=== PATIENT | male | born 1965 | race Caucasian/White ===

== ENCOUNTER 2018-09-02 10:00 | Emergency (ER) | payer SELFPAY ==
[2018-09-02] MEDS ORDERED: TETANUS/DIPHTHERIA TOXOID [ADULT] 0.5 ML VIAL IM ONE (10:13)
== END 2018-09-02 10:44 | disposition home or self-care (01) ==
LOC: EDH 10:00
DX: S91.341A Puncture wound with foreign body, right foot, initial encounter (principal); I10 Essential (primary) hypertension; Z72.0 Tobacco use; W45.0XXA Nail entering through skin, initial encounter; Y93.89 Activity, other specified; Y92.89 Other specified places as the place of occurrence of the external cause; Y99.8 Other external cause status
CPT/HCPCS: 73620; 90471; 90714

== ENCOUNTER 2022-02-10 01:10 | Emergency (ER) | payer OTHER ==
[~2022-02-10] VITALS: Ht 177.8 cm; Wt 94.8 kg
[2022-02-10 01:40] LABS: BASOPHILS % (AUTO) 1.1 % (0.0-5.0); EOSINOPHILS % (AUTO) 2.3 % (0.0-8.0); HEMATOCRIT 43.4 % (42-54); LYMPHOCYTES % (AUTO) 38.5 % (21.0-51.0); MEAN CORPUSCULAR HEMOGLOBIN 30.4 pg (27.0-33.0); MEAN CORPUSCULAR HGB CONC 33.9 g/dL (32.0-36.0); MEAN CORPUSCULAR VOLUME 89.9 fL (79-99); MONOCYTES % (AUTO) 11.6 % (3.0-13.0); PLATELET COUNT (AUTO) 256 K/uL (130-400); RED BLOOD CELL COUNT(AUTO) 4.83 MIL/uL (4.50-6.20); RED CELL DISTRIBUTION WIDTH 12.9 % (11.0-15.5); WHITE BLOOD COUNT (AUTO) 10.6 K/uL (4.8-10.8)
[2022-02-10 01:54] LABS: CREATININE 0.9 mg/dL (0.5-1.5)
[2022-02-10 01:59] LABS: BILIRUBIN,TOTAL 0.3 mg/dL (0.2-1.0); TOTAL PROTEIN, SERUM 7.7 g/dL (6.0-8.3)
[2022-02-10] MEDS ORDERED: KETOROLAC 30MG VIAL (30MG/ML) IVP ONE (02:00)
[2022-02-10] MEDS ORDERED: HYDROCODONE/ACETAMINOPHEN 10/325 MG TAB PO ONE (02:00)
[2022-02-10 03:09] VITALS: BP 149/94
[2022-02-10] MEDS ORDERED: MORPHINE 4 MG SYG ONE (03:17)
[2022-02-10] MEDS ORDERED: MORPHINE 4 MG SYG IVP ONE (03:30)
[2022-02-10] MEDS ORDERED: ACET-2079 PO (03:47)
[2022-02-10] MEDS ORDERED: DICL50TA9 PO (03:47)
== END 2022-02-10 03:58 | disposition home or self-care (01) ==
LOC: EDH 01:10
DX: T75.4XXA Electrocution, initial encounter (principal); I10 Essential (primary) hypertension; M54.2 Cervicalgia; M62.82 Rhabdomyolysis; R07.89 Other chest pain; Z79.1 Long term (current) use of non-steroidal anti-inflammatories (NSAID); W86.8XXA Exposure to other electric current, initial encounter; Y93.89 Activity, other specified; Y92.89 Other specified places as the place of occurrence of the external cause; Y99.8 Other external cause status
CPT/HCPCS: 36415; 71045; 80053; 82550; 84484; 85025; 93005; 96374; 96375; 99285; J1885; J2270

== ENCOUNTER 2023-12-05 14:30 | Emergency (ER) | payer BC, OTHER ==
[~2023-12-05] VITALS: Ht 175.3 cm; Wt 85.3 kg
[~2023-12-05 14:30] MED LIST: ACET-2079 PO; DICL50TA9 PO
[2023-12-05 14:39] VITALS: BP 160/90; PULSE 63; RESP 18; O2SAT 98
[2023-12-05] MEDS: TETANUS/DIPHTHERIA TOXOID [ADULT] 0.5 ML VIAL IM ONE (15:37)
[2023-12-05] MEDS ORDERED: LIDOCAINE HCL 1% 20 ML VIAL ONE (15:45)
[2023-12-05] MEDS: IBUPROFEN 600 MG TABLET ONE (16:22)
[2023-12-05] MEDS: IBUPROFEN 600 MG TABLET PO ONE (16:22)
[2023-12-05] MEDS: BACITRACIN 1 EACH PACKET TP ONE ×2 (16:22)
== END 2023-12-05 16:28 | disposition home or self-care (01) ==
LOC: EDH 14:30
DX: S61.210A Laceration without foreign body of right index finger without damage to nail, initial encounter (principal); I10 Essential (primary) hypertension; Z79.899 Other long term (current) drug therapy; X58.XXXA Exposure to other specified factors, initial encounter; Y93.89 Activity, other specified; Y92.89 Other specified places as the place of occurrence of the external cause; Y99.8 Other external cause status
CPT/HCPCS: 12001; 73140; 90471; 90714